=== PATIENT | male | born 1985 | race Caucasian/White ===

== ENCOUNTER 2021-10-21 13:16 | Emergency (ER) | payer SELFPAY ==
[~2021-10-21] VITALS: Ht 185.4 cm; Wt 81.6 kg
[2021-10-21] MEDS ORDERED: TDAP [DIPH/PERTUSSIS/TET] 0.5 ML VIAL IM ONE (13:55)
[2021-10-21] MEDS: TDAP [DIPH/PERTUSSIS/TET] 0.5 ML VIAL IM ONE (14:02)
[2021-10-21 15:18] VITALS: BP 115/79
== END 2021-10-21 15:18 | disposition home or self-care (01) ==
LOC: ER 13:20
DX: S01.112A Laceration without foreign body of left eyelid and periocular area, initial encounter (principal); W19.XXXA Unspecified fall, initial encounter; Y93.89 Activity, other specified; Y92.89 Other specified places as the place of occurrence of the external cause; Y99.8 Other external cause status
CPT/HCPCS: 90715; A6403